=== PATIENT | male | born 1960 | race African-American/Black ===

== ENCOUNTER 2019-08-16 06:20 | Day surgery (SDC) | payer OTHER ==
[~2019-08-16] VITALS: Ht 175.3 cm; Wt 71.7 kg
[2019-08-16 07:19] LABS: HEMOGLOBIN 13.6 g/dL (13.5-17.5); MCH 29.6 pg (26.0-34.0); MCHC 32.4 g/dL (31.0-37.0); MCV 91.3 fL (80.0-100.0); MEAN PLATELET VOLUME 9.8 fL (7.4-10.4); RBC 4.6 10x6/uL (4.20-6.10); RDW 12.7 % (11.5-14.5); WBC 5.5 10x3/uL (4.8-10.8)
[2019-08-16] MEDS ORDERED: CHLORTHALIDONE25 MG PO (07:29)
[2019-08-16] MEDS ORDERED: ALEVE220 MG PO (07:30)
[2019-08-16] MEDS ORDERED: COZAAR100 MG PO (07:30)
[2019-08-16 07:44] VITALS: BP 125/65; Ht 175.3 cm; Wt 71.7 kg
--- NOTE | 2019-08-16 18:40 | NUR ---
PATIENT WALKS TO BATHROOM WITHOUT UNSTEADINESS OR DIZZINESS AND VOIDS LARGE AMOUNT IN TOILET WITHOUT DIFFICULTY. RIGHT FOREARM PIV DC'D WITH TIP INTACT. DISCHARGE INSTRUCTIONS REVIEWED WITH PATIENT
--- NOTE | 2019-08-17 12:52 | OP ---
PATIENT NAME: BHARAT WINSTON MEDICAL RECORD: [id number] :60 LOCATION:D.OPS ADMISSION DATE: SURGEON: MAINOR COTTO MD DATE OF OPERATION: 08/16/2019 PREOPERATIVE DIAGNOSIS: Symptomatic large right inguinal hernia. POSTOPERATIVE DIAGNOSIS: Symptomatic large non-incarcerated indirect right inguinal hernia. PROCEDURES: Open right inguinal hernia repair with bilayer preperitoneal polypropylene mesh. SURGEON: Mainor Cotto MD ORE CRUSHER: None. BLOOD LOSS: Minimal. ANESTHESIA: General. COMPLICATIONS: None. The risks, possible complications and alternatives to the procedure were explained to the patient. He elects to proceed. The discussion specifically included, but was not limited to, bleeding requiring emergency reoperation, infection, injury to the testicular artery or vein, injury to the vas deferens, chronic pain. We specifically discussed the fact that mesh would be used. OPERATIVE COURSE: The patient was conveyed the operating room electively on 08/16/2019. General anesthesia was induced by the anesthesia staff. The abdomen and genitals were sterilely prepped and draped. A small skin incision was accomplished in the right lower quadrant. Sharp dissection was carried down through skin and subcutaneous tissue as well as Avtar fascia. The external oblique aponeurosis was then opened along the direction of its fibers. I bluntly dissected down through the internal oblique and transversus abdominis muscles. A preperitoneal pocket was fashioned bluntly. There was no femoral component. No direct component. An indirect hernia was reduced in its entirety. I then cut 2 ovals out of a polypropylene mesh. The 2 ovals were sutured together one on top of the other with a running #1 Surgidac. The mesh was placed in the preperitoneal space. Once I was satisfied with placement of the mesh, I allowed the transversus abdominis and internal oblique muscles to come together and these were sutured together with multiple interrupted horizontal mattress 0 Surgidacs incorporating a portion of the mesh with these sutures. I then closed the external oblique aponeurosis with running #1 Vicryls. At no time during the operation was there any apparent nerve injury. Avtar's fascia was approximated with interrupted 3-0 Vicryls. The subdermis was approximated with interrupted 3-0 Vicryls. The skin was approximated with a running intracuticular 4-0 Vicryl. Benzoin and Steri-Strips were applied. The patient was then extubated and conveyed to post-anesthesia care unit where he was in stable condition. He will be dismissed back to the senior care. I am OPERATIVE REPORT [id number] BHARAT WINSTON going to write a prescription for a narcotic analgesic. There is no need for the patient to see me in the office unless he develops a complication related to this operative procedure. He is not to do any lifting or straining for 3 weeks. TRANSINT:[id number] Voice Confirmation ID: [id number] DOCUMENT ID: [id number] MAINOR COTTO MD at 1252 CC: ANTWON WOLF MD [id number] DICTATION DATE: 08/16/19 1616 OYSTER WASHER: 08/16/19 2313 [facility] 08/16/19 [id number] [place] [address]
== END 2019-08-16 18:45 | disposition home or self-care (01) ==
LOC: D.OPS 06:20
PROVIDERS: Anesthesiology; ATTEND Surgery
DX: K40.90 Unilateral inguinal hernia, without obstruction or gangrene, not specified as recurrent (principal)